=== PATIENT | male | born 1970 | race Caucasian/White ===

== ENCOUNTER → 2016-05-20 | Outpatient (CLI) | payer OTHER ==
--- NOTE | 2016-05-23 06:01 | SLEEPCENT ---
DATE OF PROCEDURE: 05/20/2016 ORDERED BY: Dr. Adiel Zapien. Nocturnal polysomnography was performed for the titration of pressure therapy in this patient with obstructive sleep apnea syndrome, apnea-hypopnea index 12.5. For testing, the patient was fit with a ResMed Quattro full face mask of large size, 5 cm of water pressure were applied to the circuit and the lights were extinguished. 6 hours and 4 minutes of data were reviewed. Of these, 221 minutes of sleep were identified. Sleep latency was normal at 17 minutes. REM latency prolonged at 195 minutes. Sleep architecture improved with optimal pressure therapy. Overall sleep efficiency was reduced at 61.4% due to a period of wake around 2 a.m. Patient's EKG showed a sinus rhythm with an average heart rate of 62 beats per minute. EEG showed normal wave forms for wake and sleep. Best sleep was appreciated on a CPAP pressure of +9. CPAP tolerance was good. Remaining measures of sleep physiology were normal. IMPRESSION: Obstructive sleep apnea syndrome (G47.33). RECOMMENDATION: Nightly use of pressure therapy 9 cm of water.
== END ==
LOC: M SLEEP 19:40
PROVIDERS: ATTEND Nurse Practitioner Adult Health
DX: G47.33 Obstructive sleep apnea (adult) (pediatric) (principal)

== ENCOUNTER → 2017-03-30 | Outpatient (CLI) | payer OTHER | LOC: M LAB 08:53 | PROVIDERS: ATTEND Internal Medicine | DX: Z00.5 Encounter for examination of potential donor of organ and tissue (principal) ==

== ENCOUNTER 2017-12-29 10:52 | Emergency (ER) | payer OTHER | END 2017-12-29 11:54 | disposition home or self-care (01) | LOC: M ED 10:52 | DX: S63.602A Unspecified sprain of left thumb, initial encounter (principal); W19.XXXA Unspecified fall, initial encounter; Y92.89 Other specified places as the place of occurrence of the external cause; Z79.899 Other long term (current) drug therapy | CPT/HCPCS: 73140 ==

== ENCOUNTER 2018-08-31 06:51 | Day surgery (SDC) | payer OTHER ==
[~2018-08-31] VITALS: Ht 182.9 cm; Wt 109.8 kg
[~2018-08-31 06:51] MED LIST: AMLO10TA5 PO; NS 1,000 ML IV ONE
[2018-08-31] MEDS ORDERED: LIDOCAINE 2% INJ 100 MG/5 ML SDV (FOR ANES.) As Ordered ONE (07:29)
[2018-08-31] MEDS ORDERED: PROPOFOL 200 MG/20 ML VIAL As Ordered ONE (07:29)
--- NOTE | 2018-08-31 07:41 | ROOR ---
Patient Name: Lion Alvarez Procedure Date: 08/31/2018 7:23 AM Date of : 1970 Age: 48 Room: [facility] Gender: Male Note Status: Finalized Procedure: Colonoscopy Indications: Screening for colorectal malignant neoplasm Providers: Adiel BUSTAMANTE MD Referring MD: CARRIE COHEN MD Requesting Provider: Medicines: Monitored Anesthesia Care Complications: No immediate complications. Procedure: Pre-Anesthesia Assessment: - The heart rate, respiratory rate, oxygen saturations, blood pressure, adequacy of pulmonary ventilation, and response to care were monitored throughout the procedure. The Colonoscope was introduced through the anus and advanced to the terminal ileum, with identification of the appendiceal orifice and IC valve. The colonoscopy was performed without difficulty. The patient tolerated the procedure well. The quality of the bowel preparation was good. Findings: The perianal and digital rectal examinations were normal. Small Internal Hemorrhoids. The entire examined colon appeared normal on direct and retroflexion views. Impression: - Small Internal Hemorrhoids. - The entire colon is normal on direct and retroflexion views. - No specimens collected. Recommendation: - Repeat colonoscopy in 10 years for screening purposes. Adiel Bustamante MD Adiel BUSTAMANTE MD 08/31/2018 7:41:15 AM Electronically signed by Adiel BUSTAMANTE MD Number of Addenda: 0 Note Initiated On: 08/31/2018 7:23 AM Estimated Blood Loss: Estimated blood loss: none.
[2018-08-31 08:01] VITALS: BP 145/83
== END 2018-08-31 08:03 | disposition home or self-care (01) ==
LOC: M OPP 06:51
PROVIDERS: ATTEND Internal Medicine Gastroenterology
DX: K64.8 Other hemorrhoids (principal); Z12.11 Encounter for screening for malignant neoplasm of colon

== ENCOUNTER → 2020-09-20 | Outpatient (CLI) | payer OTHER ==
[~2020-09-20] MED LIST changes: -AMLO10TA5 PO; +AMLO1TAB25 PO; -NS 1,000 ML IV ONE
== END ==
LOC: M LABSMTC 09:41
PROVIDERS: ATTEND Pain Medicine Pain Medicine
DX: Z20.828 Contact with and (suspected) exposure to other viral communicable diseases (principal); Z11.59 Encounter for screening for other viral diseases

== ENCOUNTER 2020-09-26 06:13 | Emergency (ER) | payer OTHER ==
[~2020-09-26] VITALS: Ht 180.3 cm; Wt 106.8 kg
[2020-09-26 06:29] LABS: BASO % 0.1 % (0.0-1.0); HEMATOCRIT 47.8 % (42.0-52.0); HEMOGLOBIN 16.5 g/dl (13.5-17.5); LYMPH # 1.5 10^3/uL (1.5-5.0); LYMPH % 10.4 % (24.0-44.0); MEAN CORPUSCULAR HGB CONC 34.5 g/dl (32.0-36.5); MEAN CORPUSCULAR VOLUME 89.7 fl (80.0-96.0); MONO # 0.6 10^3/uL (0.0-0.8); MONO % 4.3 % (2.0-8.0); NEUTROPHILS # 12.3 10^3/uL (1.5-8.5); NEUTROPHILS % 84.3 % (36.0-66.0); PLATELET COUNT, AUTOMATED 265 10^3/uL (150-450); RED BLOOD COUNT 5.33 10^6/uL (4.30-6.10); WHITE BLOOD COUNT 14.6 10^3/uL (4.0-10.0)
[2020-09-26] MEDS ORDERED: KETOROLAC 30 MG/ML 1ML VIAL IV ONE (06:45)
[2020-09-26 07:01] LABS: BLOOD UREA NITROGEN 20 MG/DL (7-18); CALCIUM LEVEL 10.1 MG/DL (8.5-10.1); CARBON DIOXIDE LEVEL 22 MEQ/L (21-32); CHLORIDE LEVEL 108 MEQ/L (98-107); CK-MB VALUE MASS < 1.0 NG/ML (<3.6); CPK CREATINE PHOSPHOKINASE 141 U/L (39-308); CREATININE FOR GFR 1.17 MG/DL (0.70-1.30); GLOMERULAR FILTRATION RATE > 60.0 (>56); GLUCOSE, FASTING 155 MG/DL (70-100); MB/CK RELATIVE INDEX 0.71 (< OR =4); POTASSIUM SERUM 4.4 MEQ/L (3.5-5.1); SODIUM LEVEL 139 MEQ/L (136-145)
--- NOTE | 2020-09-26 07:04 | REPVR ---
PROCEDURE INFORMATION: Exam: XR Chest Exam date and time: 09/26/2020 6:47 AM Age: 50 years old Clinical indication: Pain; Other: Not specified; Additional info: Chest pain TECHNIQUE: Imaging protocol: XR of the chest. Views: 1 view. COMPARISON: CR CHEST 2 VIEW 08/17/2017 9:46 AM FINDINGS: Lungs: Unremarkable. No consolidation. Pleural spaces: Unremarkable. No pleural effusion. No pneumothorax. Heart/Mediastinum: Unremarkable. No cardiomegaly. Bones/joints: Unremarkable. IMPRESSION: No acute findings. Electronically signed by: Charli Foster On 09/26/2020 07:03:42 AM
[2020-09-26] MEDS ORDERED: GI COCKTAIL 50ML BTL(HYOSCYAMINE/MAALOX/LIDOCAINE VISCOUS)(1:3:1) PO ONE (07:55)
[2020-09-26 09:30] VITALS: BP 157/81
[2020-09-26] MEDS ORDERED: SUCR1TA PO (09:31)
[2020-09-26] MEDS ORDERED: OMEP40CA97 PO (09:31)
--- NOTE | 2020-09-26 19:49 | ECGEPIP ---
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
--- NOTE | 2020-09-26 19:57 | ECGEPIP ---
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
== END 2020-09-26 10:47 | disposition home or self-care (01) ==
LOC: M ED 06:13
DX: R07.89 Other chest pain (principal); R06.02 Shortness of breath; M54.2 Cervicalgia; I10 Essential (primary) hypertension
CPT/HCPCS: 71045; 80048; 82550; 82553; 84484; 85025; 93005; 93041; 94760; 96374; 99285; J1885

== ENCOUNTER → 2021-01-09 | Outpatient (CLI) | payer OTHER ==
[~2021-01-09] MED LIST changes: +OMEP40CA4 PO; +SUCR1TA PO
[2021-01-09 08:26] LABS: ALBUMIN 3.9 GM/DL (3.2-5.2); ALT/SGPT 149 U/L (12-78); BILIRUBIN,TOTAL 0.5 MG/DL (0.2-1.0); BLOOD UREA NITROGEN 15 MG/DL (7-18); CALCIUM LEVEL 9.4 MG/DL (8.5-10.1); CARBON DIOXIDE LEVEL 28 MEQ/L (21-32); CHLORIDE LEVEL 105 MEQ/L (98-107); CREATININE FOR GFR 1.08 MG/DL (0.70-1.30); GLOMERULAR FILTRATION RATE > 60.0 (>56); GLUCOSE, FASTING 97 MG/DL (70-100); NT-PRO BNP 7 PG/ML (<125); POTASSIUM SERUM 4.3 MEQ/L (3.5-5.1); SODIUM LEVEL 139 MEQ/L (136-145); TOTAL PROTEIN 7.3 GM/DL (6.4-8.2)
== END ==
LOC: M LAB 07:19
PROVIDERS: ATTEND Internal Medicine Cardiovascular Disease
DX: R06.00 Dyspnea, unspecified (principal); E78.2 Mixed hyperlipidemia; I10 Essential (primary) hypertension

== ENCOUNTER 2021-05-16 23:11 | Inpatient (IN) | payer OTHER ==
[~2021-05-16] VITALS: Ht 182.9 cm; Wt 111.4 kg
[2021-05-16] MEDS ORDERED: ATOR40TA75 (23:24)
[2021-05-16] MEDS ORDERED: SPIR-10 (23:24)
[2021-05-16] MEDS ORDERED: CARV3.12 (23:24)
[2021-05-16] MEDS ORDERED: CHLO125TA (23:24)
[2021-05-16] MEDS ORDERED: LISI10TA22 (23:24)
[2021-05-16] MEDS ORDERED: dexameTHASONE 20MG/5ML VIAL (J1100 PER 1MG) IV ONE (23:50)
[2021-05-17] MEDS: COMBIVENT RESPIMAT 100-20MCG INHALER 4GM INH SCH (00:21)
[2021-05-17 00:32] LABS: ABG BASE EXCESS -4.3 (-2.0-2.0); ABG HCO3 18.3 MEQ/L (22.0-26.0); ABG O2 SATURATION 98.9 % (95.0-99.0); ABG PARTIAL PRESSURE CO2 27.3 mmHg (35.0-45.0); ABG PARTIAL PRESSURE O2 136.2 mmHg (75.0-100.0); ABG TOTAL CO2 19.2 MEQ/L (22.0-29.0); ABG pH (ARTERIAL) 7.445 UNITS (7.350-7.450)
[2021-05-17 00:41] LABS: HEMATOCRIT 44.9 % (42.0-52.0); HEMOGLOBIN 15.4 g/dl (13.5-17.5); LYMPH # 1.3 10^3/uL (1.5-5.0); LYMPH % 26.6 % (24.0-44.0); MEAN CORPUSCULAR HEMOGLOBIN 31.2 pg (27.0-33.0); MEAN CORPUSCULAR HGB CONC 34.3 g/dl (32.0-36.5); MEAN CORPUSCULAR VOLUME 90.9 fl (80.0-96.0); MONO # 0.7 10^3/uL (0.0-0.8); MONO % 13.8 % (2.0-8.0); NEUTROPHILS # 2.9 10^3/uL (1.5-8.5); NEUTROPHILS % 59.2 % (36.0-66.0); PLATELET COUNT, AUTOMATED 145 10^3/uL (150-450); RED BLOOD COUNT 4.94 10^6/uL (4.30-6.10); WHITE BLOOD COUNT 4.9 10^3/uL (4.0-10.0)
[2021-05-17 00:52] LABS: CALCIUM LEVEL 8.2 MG/DL (8.5-10.1); CREATININE FOR GFR 2.12 MG/DL (0.70-1.30); GLOMERULAR FILTRATION RATE 35.1 (>56); POTASSIUM SERUM 4.1 MEQ/L (3.5-5.1)
[2021-05-17 00:53] LABS: ALBUMIN 3.6 GM/DL (3.2-5.2); BILIRUBIN,DIRECT 0.3 MG/DL (0.0-0.2); BILIRUBIN,TOTAL 0.4 MG/DL (0.2-1.0); CK-MB VALUE MASS < 1.0 NG/ML (<3.6); CPK CREATINE PHOSPHOKINASE 81 U/L (39-308); MB/CK RELATIVE INDEX 1.23 (< OR =4); TOTAL PROTEIN 7.1 GM/DL (6.4-8.2)
[2021-05-17] MEDS ORDERED: NS 1,000 ML IV ONE (01:00)
[2021-05-17 01:33] LABS: CK-MB VALUE MASS < 1.0 NG/ML (<3.6); CPK CREATINE PHOSPHOKINASE 75 U/L (39-308); MB/CK RELATIVE INDEX 1.33 (< OR =4)
[2021-05-17] MEDS ORDERED: LISI10TA22 PO (01:55)
[2021-05-17] MEDS ORDERED: SPIR-10 PO (01:55)
[2021-05-17] MEDS ORDERED: CHLO125TA PO (01:55)
[2021-05-17] MEDS ORDERED: HOME MED LIST COMPLETE! XX SCH (01:55)
[2021-05-17] MEDS ORDERED: NITR4TASL SL (01:55)
[2021-05-17] MEDS ORDERED: ATOR40TA75 PO (01:55)
[2021-05-17] MEDS ORDERED: CARV3.12 PO (01:55)
[2021-05-17] MEDS ORDERED: MOM 30ML SUSPENSION UDC PO PRN (03:10)
[2021-05-17] MEDS ORDERED: MAALOX 30 ML SUSP *UDC PO PRN (03:10)
[2021-05-17] MEDS ORDERED: ACETAMINOPHEN TAB 650MG DOSE (2X325MG) PO PRN (03:10)
[2021-05-17] MEDS ORDERED: NITROGLYCERIN 0.4 MG SUBL TABLET SL PRN (03:15)
[2021-05-17 03:52] LABS: HEMOGLOBIN 14.2 g/dl (13.5-17.5); LYMPH % 27.5 % (24.0-44.0); MEAN CORPUSCULAR HEMOGLOBIN 31.1 pg (27.0-33.0); MEAN CORPUSCULAR HGB CONC 33.8 g/dl (32.0-36.5); MEAN CORPUSCULAR VOLUME 92.1 fl (80.0-96.0); MONO # 0.3 10^3/uL (0.0-0.8); MONO % 8.3 % (2.0-8.0); NEUTROPHILS # 2.3 10^3/uL (1.5-8.5); NEUTROPHILS % 63.6 % (36.0-66.0); PLATELET COUNT, AUTOMATED 140 10^3/uL (150-450); RED BLOOD COUNT 4.56 10^6/uL (4.30-6.10); WHITE BLOOD COUNT 3.6 10^3/uL (4.0-10.0)
[2021-05-17 04:14] LABS: ALBUMIN 3.1 GM/DL (3.2-5.2); BILIRUBIN,TOTAL 0.5 MG/DL (0.2-1.0); CALCIUM LEVEL 7.9 MG/DL (8.5-10.1); CREATININE FOR GFR 1.82 MG/DL (0.70-1.30); GLOMERULAR FILTRATION RATE 41.9 (>56); MAGNESIUM LEVEL 2.2 MG/DL (1.8-2.4); POTASSIUM SERUM 3.9 MEQ/L (3.5-5.1); TOTAL PROTEIN 7.2 GM/DL (6.4-8.2)
[2021-05-17 04:18] LABS: ALBUMIN 3.2 GM/DL (3.2-5.2); BILIRUBIN,DIRECT 0.3 MG/DL (0.0-0.2); BILIRUBIN,TOTAL 0.4 MG/DL (0.2-1.0); TOTAL PROTEIN 6.5 GM/DL (6.4-8.2)
[2021-05-17] MEDS ORDERED: REMDESIVIR 200 MG in NS 250 ML IV ONE (07:00)
[2021-05-17] MEDS: NS 1,000 ML IV SCH ×3 (07:00→18:33)
[2021-05-17 07:39] LABS: INR 0.99; PROTHROMBIN TIME 13.5 SECONDS (12.7-14.5)
[2021-05-17 07:40] LABS: PARTIAL THROMBOPLASTIN TIME 29.5 SECONDS (25.9-37.0)
[2021-05-17 07:43] LABS: D-DIMER QUANT 528.76 ng/ml (<500)
[2021-05-17 07:56] LABS: C REACTIVE PROTEIN QUANTITATIV 0.6 MG/DL (0.00-0.30)
[2021-05-17] MEDS ORDERED: SODIUM CHLORIDE 0.9% INJ 10 ML SYR IV ONE (08:00)
[2021-05-17] MEDS: CARVedilol 3.125 MG TAB PO SCH ×2 (09:30→21:58)
[2021-05-17] MEDS: dexameTHASONE 4 MG/ML 1ML VIAL (J1100 PER 1MG) IV SCH (09:30)
[2021-05-17] MEDS: BARICITINIB 2MG TABLET (OLUMIANT) FOR EUA PO SCH (09:31)
[2021-05-17] MEDS ORDERED: COMBIVENT RESPIMAT 100-20MCG INHALER 4GM INH PRN (11:10)
[2021-05-17 13:49] LABS: CREATININE FOR GFR 1.52 MG/DL (0.70-1.30); GLOMERULAR FILTRATION RATE 51.5 (>56); POTASSIUM SERUM 4.1 MEQ/L (3.5-5.1)
[2021-05-17] MEDS: ENOXAPARIN 30MG/0.3ML SYRINGE (J1650 PER 10MG) SC SCH (14:17)
[2021-05-17 17:10] VITALS: BP 134/74
[2021-05-17 20:00] VITALS: BP 137/73
[2021-05-17] MEDS: ATORVASTATIN 20 MG TAB PO SCH (21:58)
[2021-05-18] VITALS (9 sets, daily range): BP systolic 117–167; BP diastolic 61–73; O2SAT 90–93
[2021-05-18] MEDS: NS 1,000 ML IV SCH ×2 (01:08→08:58)
[2021-05-18] MEDS: REMDESIVIR 100 MG in NS 250 ML IV SCH (06:43)
[2021-05-18 07:58] LABS: HEMATOCRIT 43.6 % (42.0-52.0); HEMOGLOBIN 14.4 g/dl (13.5-17.5); LYMPH # 1.8 10^3/uL (1.5-5.0); LYMPH % 26.3 % (24.0-44.0); MEAN CORPUSCULAR HEMOGLOBIN 30.6 pg (27.0-33.0); MEAN CORPUSCULAR VOLUME 92.8 fl (80.0-96.0); MONO % 14.5 % (2.0-8.0); NEUTROPHILS % 58.6 % (36.0-66.0); PLATELET COUNT, AUTOMATED 162 10^3/uL (150-450); WHITE BLOOD COUNT 6.7 10^3/uL (4.0-10.0)
[2021-05-18 08:44] LABS: BLOOD UREA NITROGEN 41 MG/DL (7-18); CARBON DIOXIDE LEVEL 19 MEQ/L (21-32); CHLORIDE LEVEL 113 MEQ/L (98-107); CREATININE FOR GFR 1.06 MG/DL (0.70-1.30); GLOMERULAR FILTRATION RATE > 60.0 (>56); GLUCOSE, FASTING 121 MG/DL (70-100); MAGNESIUM LEVEL 2.2 MG/DL (1.8-2.4); POTASSIUM SERUM 4.2 MEQ/L (3.5-5.1); SODIUM LEVEL 143 MEQ/L (136-145)
[2021-05-18] MEDS: SODIUM CHLORIDE 0.9% INJ 10 ML SYR IV SCH (08:56)
[2021-05-18] MEDS: CARVedilol 3.125 MG TAB PO SCH ×2 (08:57→21:00)
[2021-05-18] MEDS: BARICITINIB 2MG TABLET (OLUMIANT) FOR EUA PO SCH (08:57)
[2021-05-18] MEDS: dexameTHASONE 4 MG/ML 1ML VIAL (J1100 PER 1MG) IV SCH (08:58)
[2021-05-18] MEDS: ENOXAPARIN 30MG/0.3ML SYRINGE (J1650 PER 10MG) SC SCH (08:58)
[2021-05-18] MEDS: ATORVASTATIN 20 MG TAB PO SCH (21:01)
[2021-05-19] VITALS (8 sets, daily range): BP systolic 112–127; BP diastolic 58–69; O2SAT 84–92
[2021-05-19] MEDS: REMDESIVIR 100 MG in NS 250 ML IV SCH (06:40)
[2021-05-19 07:44] LABS: HEMATOCRIT 42.4 % (42.0-52.0); HEMOGLOBIN 14.2 g/dl (13.5-17.5); MEAN CORPUSCULAR HEMOGLOBIN 30.5 pg (27.0-33.0); MEAN CORPUSCULAR HGB CONC 33.5 g/dl (32.0-36.5); PLATELET COUNT, AUTOMATED 187 10^3/uL (150-450); RED BLOOD COUNT 4.66 10^6/uL (4.30-6.10); WHITE BLOOD COUNT 8.5 10^3/uL (4.0-10.0)
[2021-05-19 08:00] LABS: BLOOD UREA NITROGEN 34 MG/DL (7-18); CALCIUM LEVEL 8.3 MG/DL (8.5-10.1); CARBON DIOXIDE LEVEL 21 MEQ/L (21-32); CHLORIDE LEVEL 110 MEQ/L (98-107); CREATININE FOR GFR 1.05 MG/DL (0.70-1.30); GLOMERULAR FILTRATION RATE > 60.0 (>56); GLUCOSE, FASTING 110 MG/DL (70-100); MAGNESIUM LEVEL 2.2 MG/DL (1.8-2.4); POTASSIUM SERUM 3.9 MEQ/L (3.5-5.1); SODIUM LEVEL 141 MEQ/L (136-145)
[2021-05-19] MEDS: SODIUM CHLORIDE 0.9% INJ 10 ML SYR IV SCH (08:20)
[2021-05-19 08:38] LABS: ATYPICAL LYMPH 4 % (0-5); LYMPHOCYTES 11 % (16-44); MONOCYTES 15 % (0-5); NEUTROPHILS 68 % (28-66)
[2021-05-19 08:41] LABS: PLATELET CLUMPS SMALL AMT; PLATELET ESTIMATE NORMAL (NORMAL)
[2021-05-19] MEDS: ENOXAPARIN 30MG/0.3ML SYRINGE (J1650 PER 10MG) SC SCH (09:04)
[2021-05-19] MEDS: dexameTHASONE 4 MG/ML 1ML VIAL (J1100 PER 1MG) IV SCH (09:05)
[2021-05-19] MEDS: BARICITINIB 2MG TABLET (OLUMIANT) FOR EUA PO SCH (09:05)
[2021-05-19] MEDS: CARVedilol 3.125 MG TAB PO SCH ×2 (09:08→20:36)
[2021-05-19] MEDS: ATORVASTATIN 20 MG TAB PO SCH (20:36)
[2021-05-20] VITALS (12 sets, daily range): BP systolic 118–138; BP diastolic 58–68; O2SAT 90–95
[2021-05-20 06:55] LABS: HEMOGLOBIN 14.8 g/dl (13.5-17.5); MEAN CORPUSCULAR HEMOGLOBIN 30.8 pg (27.0-33.0); MEAN CORPUSCULAR HGB CONC 34.4 g/dl (32.0-36.5); MEAN CORPUSCULAR VOLUME 89.4 fl (80.0-96.0); PLATELET COUNT, AUTOMATED 179 10^3/uL (150-450); RED BLOOD COUNT 4.81 10^6/uL (4.30-6.10); WHITE BLOOD COUNT 10.3 10^3/uL (4.0-10.0)
[2021-05-20 07:19] LABS: BLOOD UREA NITROGEN 31 MG/DL (7-18); CALCIUM LEVEL 8.3 MG/DL (8.5-10.1); CARBON DIOXIDE LEVEL 23 MEQ/L (21-32); CHLORIDE LEVEL 107 MEQ/L (98-107); CREATININE FOR GFR 0.94 MG/DL (0.70-1.30); GLOMERULAR FILTRATION RATE > 60.0 (>56); GLUCOSE, FASTING 98 MG/DL (70-100); MAGNESIUM LEVEL 2.1 MG/DL (1.8-2.4); POTASSIUM SERUM 3.9 MEQ/L (3.5-5.1); SODIUM LEVEL 139 MEQ/L (136-145)
[2021-05-20 07:27] LABS: ATYPICAL LYMPH 13 % (0-5); LYMPHOCYTES 11 % (16-44); MONOCYTES 7 % (0-5); NEUTROPHILS 69 % (28-66)
[2021-05-20 07:28] LABS: PLATELET ESTIMATE NORMAL (NORMAL)
[2021-05-20 07:29] LABS: POIKILOCYTOSIS 1+
[2021-05-20] MEDS: REMDESIVIR 100 MG in NS 250 ML IV SCH (07:32)
[2021-05-20] MEDS: SODIUM CHLORIDE 0.9% INJ 10 ML SYR IV SCH (08:00)
[2021-05-20] MEDS: dexameTHASONE 4 MG/ML 1ML VIAL (J1100 PER 1MG) IV SCH (09:26)
[2021-05-20] MEDS: ENOXAPARIN 40MG/0.4ML SYRINGE (J1650 PER 10MG) SC SCH (09:27)
[2021-05-20] MEDS: BARICITINIB 2MG TABLET (OLUMIANT) FOR EUA PO SCH (09:31)
[2021-05-20] MEDS: CARVedilol 3.125 MG TAB PO SCH ×2 (09:35→22:14)
[2021-05-20] MEDS: ATORVASTATIN 20 MG TAB PO SCH (22:03)
[2021-05-21] VITALS (9 sets, daily range): BP systolic 127–146; BP diastolic 61–73; O2SAT 90–93
[2021-05-21 07:03] LABS: BASO % 0.2 % (0.0-1.0); HEMATOCRIT 43.6 % (42.0-52.0); HEMOGLOBIN 14.9 g/dl (13.5-17.5); LYMPH # 1.8 10^3/uL (1.5-5.0); MEAN CORPUSCULAR HEMOGLOBIN 30.6 pg (27.0-33.0); MEAN CORPUSCULAR HGB CONC 34.2 g/dl (32.0-36.5); MEAN CORPUSCULAR VOLUME 89.5 fl (80.0-96.0); MONO # 0.9 10^3/uL (0.0-0.8); MONO % 6.8 % (2.0-8.0); NEUTROPHILS # 10.2 10^3/uL (1.5-8.5); NEUTROPHILS % 78.3 % (36.0-66.0); PLATELET COUNT, AUTOMATED 198 10^3/uL (150-450); RED BLOOD COUNT 4.87 10^6/uL (4.30-6.10); WHITE BLOOD COUNT 13.1 10^3/uL (4.0-10.0)
[2021-05-21 07:33] LABS: BLOOD UREA NITROGEN 25 MG/DL (7-18); CALCIUM LEVEL 8.7 MG/DL (8.5-10.1); CARBON DIOXIDE LEVEL 25 MEQ/L (21-32); CHLORIDE LEVEL 104 MEQ/L (98-107); CREATININE FOR GFR 0.92 MG/DL (0.70-1.30); GLOMERULAR FILTRATION RATE > 60.0 (>56); GLUCOSE, FASTING 95 MG/DL (70-100); MAGNESIUM LEVEL 2.2 MG/DL (1.8-2.4); POTASSIUM SERUM 3.8 MEQ/L (3.5-5.1); SODIUM LEVEL 135 MEQ/L (136-145)
[2021-05-21] MEDS: REMDESIVIR 100 MG in NS 250 ML IV SCH (07:34)
[2021-05-21] MEDS: SODIUM CHLORIDE 0.9% INJ 10 ML SYR IV SCH (09:12)
[2021-05-21] MEDS: ENOXAPARIN 40MG/0.4ML SYRINGE (J1650 PER 10MG) SC SCH (09:13)
[2021-05-21] MEDS: BARICITINIB 2MG TABLET (OLUMIANT) FOR EUA PO SCH (09:13)
[2021-05-21] MEDS: CARVedilol 3.125 MG TAB PO SCH ×2 (09:13→20:31)
[2021-05-21] MEDS: dexameTHASONE 4 MG/ML 1ML VIAL (J1100 PER 1MG) IV SCH (09:13)
[2021-05-21] MEDS: ATORVASTATIN 20 MG TAB PO SCH (20:31)
[2021-05-21 21:19] LABS: ABG BASE EXCESS -0.1 (-2.0-2.0); ABG HCO3 21.8 MEQ/L (22.0-26.0); ABG O2 SATURATION 93.1 % (95.0-99.0); ABG PARTIAL PRESSURE O2 62.8 mmHg (75.0-100.0); ABG STANDARD HCO3 24.3 MEQ/L (22.0-26.0); ABG TOTAL CO2 22.7 MEQ/L (22.0-29.0); ABG pH (ARTERIAL) 7.494 UNITS (7.350-7.450)
[2021-05-21] MEDS: COMBIVENT RESPIMAT 100-20MCG INHALER 4GM INH SCH (21:26)
[2021-05-22] MEDS: FLUTICASONE PROP 0.05% NASAL SPRAY 16 GM (FLONASE) NARES SCH ×3 (00:01→20:22)
[2021-05-22] MEDS: IPRATROPIUM 0.5MG/ALBUTEROL 2.5MG INH SOL UD 3ML (DUONEB) NEB PRN ×3 (00:39→07:39)
[2021-05-22 00:57] LABS: ABG BASE EXCESS 0.8 (-2.0-2.0); ABG HCO3 22.6 MEQ/L (22.0-26.0); ABG O2 SATURATION 92.1 % (95.0-99.0); ABG PARTIAL PRESSURE CO2 29.4 mmHg (35.0-45.0); ABG PARTIAL PRESSURE O2 60.7 mmHg (75.0-100.0); ABG TOTAL CO2 23.5 MEQ/L (22.0-29.0); ABG pH (ARTERIAL) 7.504 UNITS (7.350-7.450)
[2021-05-22] MEDS: COMBIVENT RESPIMAT 100-20MCG INHALER 4GM INH SCH ×4 (01:10→19:53)
[2021-05-22] MEDS ORDERED: RAMELTEON 8 MG TAB (ROZEREM) PO PRN (02:20)
[2021-05-22] MEDS ORDERED: hydrOXYzine 25 MG TAB PO PRN (02:20)
[2021-05-22 03:55] VITALS: BP 121/59
[2021-05-22] MEDS ORDERED: MORPHINE 2 MG/ML 1ML VIAL (J2270) IV ONE (04:10)
[2021-05-22 04:39] LABS: BASO % 0.2 % (0.0-1.0); EOS % 0.1 % (0.0-3.0); HEMATOCRIT 45.9 % (42.0-52.0); HEMOGLOBIN 15.6 g/dl (13.5-17.5); LYMPH # 1.4 10^3/uL (1.5-5.0); LYMPH % 8.6 % (24.0-44.0); MEAN CORPUSCULAR HEMOGLOBIN 30.6 pg (27.0-33.0); MONO # 0.7 10^3/uL (0.0-0.8); MONO % 4.2 % (2.0-8.0); NEUTROPHILS # 13.7 10^3/uL (1.5-8.5); NEUTROPHILS % 86.3 % (36.0-66.0); PLATELET COUNT, AUTOMATED 218 10^3/uL (150-450); WHITE BLOOD COUNT 15.8 10^3/uL (4.0-10.0)
[2021-05-22 04:44] LABS: VENOUS BASE EXCESS 0.1 (-2.0-2.0); VENOUS HCO3 22.6 MEQ/L (23.0-27.0); VENOUS O2 SATURATION 72.2 % (60.0-80.0); VENOUS PARTIAL PRESSURE CO2 31.6 mmHg (38.0-50.0); VENOUS PARTIAL PRESSURE O2 36.5 mmHg (30.0-50.0); VENOUS PH 7.473 UNITS (7.330-7.430); VENOUS STANDARD HCO3 23.9 MEQ/L; VENOUS TOTAL CO2 23.6 MEQ/L (24.0-28.0)
[2021-05-22 06:01] LABS: BLOOD UREA NITROGEN 22 MG/DL (7-18); CALCIUM LEVEL 8.5 MG/DL (8.5-10.1); CARBON DIOXIDE LEVEL 20 MEQ/L (21-32); CHLORIDE LEVEL 105 MEQ/L (98-107); CREATININE FOR GFR 0.92 MG/DL (0.70-1.30); GLOMERULAR FILTRATION RATE > 60.0 (>56); GLUCOSE, FASTING 78 MG/DL (70-100); POTASSIUM SERUM 4.6 MEQ/L (3.5-5.1); SODIUM LEVEL 138 MEQ/L (136-145)
[2021-05-22 06:04] LABS: CK-MB VALUE MASS 1.4 NG/ML (<3.6); MB/CK RELATIVE INDEX 0.56 (< OR =4)
[2021-05-22] MEDS: CARVedilol 3.125 MG TAB PO SCH ×2 (08:13→20:22)
[2021-05-22] MEDS: BARICITINIB 2MG TABLET (OLUMIANT) FOR EUA PO SCH (08:13)
[2021-05-22] MEDS: dexameTHASONE 4 MG/ML 1ML VIAL (J1100 PER 1MG) IV SCH (08:13)
[2021-05-22] MEDS: ENOXAPARIN 40MG/0.4ML SYRINGE (J1650 PER 10MG) SC SCH (08:13)
[2021-05-22] MEDS: PIPERACILLIN/TAZOBACTAM SOD 4.5 GM in D5W MINI-BAG PLUS 50 ML IV SCH ×3 (08:13→20:22)
[2021-05-22] MEDS: DOXYCYCLINE HYCLATE 100 MG in D5W MINI-BAG PLUS 100 ML IV SCH ×2 (08:14→21:34)
[2021-05-22 08:47] LABS: CK-MB VALUE MASS < 1.0 NG/ML (<3.6); CPK CREATINE PHOSPHOKINASE 149 U/L (39-308); MB/CK RELATIVE INDEX 0.67 (< OR =4)
[2021-05-22 09:25] LABS: HEMATOCRIT 45.1 % (42.0-52.0); HEMOGLOBIN 15.5 g/dl (13.5-17.5); MEAN CORPUSCULAR HEMOGLOBIN 30.6 pg (27.0-33.0); MEAN CORPUSCULAR HGB CONC 34.4 g/dl (32.0-36.5); MEAN CORPUSCULAR VOLUME 89.1 fl (80.0-96.0); PLATELET COUNT, AUTOMATED 232 10^3/uL (150-450); RED BLOOD COUNT 5.06 10^6/uL (4.30-6.10); WHITE BLOOD COUNT 14.7 10^3/uL (4.0-10.0)
[2021-05-22 10:50] LABS: BLOOD UREA NITROGEN 22 MG/DL (7-18); CALCIUM LEVEL 8.5 MG/DL (8.5-10.1); CARBON DIOXIDE LEVEL 25 MEQ/L (21-32); CHLORIDE LEVEL 101 MEQ/L (98-107); CREATININE FOR GFR 1.14 MG/DL (0.70-1.30); GLOMERULAR FILTRATION RATE > 60.0 (>56); GLUCOSE, FASTING 226 MG/DL (70-100); POTASSIUM SERUM 3.9 MEQ/L (3.5-5.1); SODIUM LEVEL 134 MEQ/L (136-145)
[2021-05-22 10:54] LABS: CK-MB VALUE MASS 1.4 NG/ML (<3.6); MB/CK RELATIVE INDEX 1.04 (< OR =4)
[2021-05-22 12:56] VITALS: BP 118/67
[2021-05-22 16:00] VITALS: BP 109/59
[2021-05-22 20:00] VITALS: BP 121/67
[2021-05-22 20:22] VITALS: BP 121/67
[2021-05-22] MEDS: ATORVASTATIN 20 MG TAB PO SCH (20:22)
[2021-05-22 22:05] VITALS: O2SAT 94
[2021-05-23] VITALS (48 sets, daily range): BP systolic 64–185; BP diastolic 36–114
[2021-05-23] MEDS: COMBIVENT RESPIMAT 100-20MCG INHALER 4GM INH SCH ×2 (01:49→08:00)
[2021-05-23] MEDS: PIPERACILLIN/TAZOBACTAM SOD 4.5 GM in D5W MINI-BAG PLUS 50 ML IV SCH ×2 (02:02→10:21)
[2021-05-23 04:13] LABS: ABG BASE EXCESS -0.7 (-2.0-2.0); ABG HCO3 20.9 MEQ/L (22.0-26.0); ABG O2 SATURATION 90.2 % (95.0-99.0); ABG PARTIAL PRESSURE CO2 27.8 mmHg (35.0-45.0); ABG PARTIAL PRESSURE O2 54.4 mmHg (75.0-100.0); ABG STANDARD HCO3 23.7 MEQ/L (22.0-26.0); ABG TOTAL CO2 21.8 MEQ/L (22.0-29.0); ABG pH (ARTERIAL) 7.495 UNITS (7.350-7.450)
[2021-05-23] MEDS ORDERED: LORazepam 2 MG/ML VIAL IV ONE (05:25)
[2021-05-23] MEDS ORDERED: LIDOCAINE 5% (LIDODERM) PATCH TD SCH (05:30)
[2021-05-23 06:29] LABS: VENOUS BASE EXCESS 0.1 (-2.0-2.0); VENOUS HCO3 22.6 MEQ/L (23.0-27.0); VENOUS O2 SATURATION 78.7 % (60.0-80.0); VENOUS PARTIAL PRESSURE CO2 31.3 mmHg (38.0-50.0); VENOUS PARTIAL PRESSURE O2 39.9 mmHg (30.0-50.0); VENOUS PH 7.476 UNITS (7.330-7.430); VENOUS STANDARD HCO3 24.1 MEQ/L; VENOUS TOTAL CO2 23.5 MEQ/L (24.0-28.0)
[2021-05-23 06:30] LABS: BASO % 0.1 % (0.0-1.0); EOS # 0.1 10^3/uL (0.0-0.5); EOS % 0.3 % (0.0-3.0); HEMATOCRIT 44.8 % (42.0-52.0); HEMOGLOBIN 15.5 g/dl (13.5-17.5); LYMPH % 6.8 % (24.0-44.0); MEAN CORPUSCULAR HEMOGLOBIN 30.8 pg (27.0-33.0); MEAN CORPUSCULAR HGB CONC 34.6 g/dl (32.0-36.5); MEAN CORPUSCULAR VOLUME 88.9 fl (80.0-96.0); MONO # 0.5 10^3/uL (0.0-0.8); MONO % 3.6 % (2.0-8.0); NEUTROPHILS # 13.1 10^3/uL (1.5-8.5); NEUTROPHILS % 88.3 % (36.0-66.0); PLATELET COUNT, AUTOMATED 250 10^3/uL (150-450); RED BLOOD COUNT 5.04 10^6/uL (4.30-6.10); WHITE BLOOD COUNT 14.8 10^3/uL (4.0-10.0)
[2021-05-23 06:41] LABS: INR 1.28; PROTHROMBIN TIME 16.4 SECONDS (12.7-14.5)
[2021-05-23 06:42] LABS: PARTIAL THROMBOPLASTIN TIME 27.9 SECONDS (25.9-37.0)
[2021-05-23] MEDS ORDERED: PROCHLORPERAZINE 10MG/2ML VIAL (J0780 PER 1) IV PRN (07:00)
[2021-05-23 07:01] LABS: BLOOD UREA NITROGEN 22 MG/DL (7-18); CALCIUM LEVEL 8.8 MG/DL (8.5-10.1); CARBON DIOXIDE LEVEL 24 MEQ/L (21-32); CHLORIDE LEVEL 103 MEQ/L (98-107); CREATININE FOR GFR 1.16 MG/DL (0.70-1.30); GLOMERULAR FILTRATION RATE > 60.0 (>56); GLUCOSE, FASTING 96 MG/DL (70-100); MAGNESIUM LEVEL 2.2 MG/DL (1.8-2.4); NT-PRO BNP 78 PG/ML (<125); SODIUM LEVEL 134 MEQ/L (136-145)
[2021-05-23 07:11] LABS: ABG BASE EXCESS 0.1 (-2.0-2.0); ABG HCO3 21.4 MEQ/L (22.0-26.0); ABG O2 SATURATION 86.5 % (95.0-99.0); ABG PARTIAL PRESSURE CO2 27.2 mmHg (35.0-45.0); ABG STANDARD HCO3 24.3 MEQ/L (22.0-26.0); ABG TOTAL CO2 22.2 MEQ/L (22.0-29.0); ABG pH (ARTERIAL) 7.514 UNITS (7.350-7.450)
[2021-05-23 07:12] LABS: ABG PARTIAL PRESSURE O2 47.6 mmHg (75.0-100.0)
[2021-05-23 07:20] LABS: CK-MB VALUE MASS 1.5 NG/ML (<3.6); MB/CK RELATIVE INDEX 1.38 (< OR =4)
[2021-05-23 07:23] LABS: D-DIMER QUANT > 4000 ng/ml (<500)
[2021-05-23] MEDS ORDERED: HEPARIN DRIP 25,000 UNITS in IV 1 EA IV SCH (08:20)
[2021-05-23] MEDS ORDERED: HEPARIN SOD (PORCINE) 5000UNITS/ML 1ML VIAL/SYRINGE IV PRN (08:20)
[2021-05-23] MEDS ORDERED: HEPARIN SOD (PORCINE) 5000UNITS/ML 1ML VIAL/SYRINGE IV ONE (08:20)
[2021-05-23] MEDS ORDERED: CHLORHEXIDINE GLUCONATE 0.12 % 15ML UDC (PERIDEX ORAL RINSE) MT SCH (09:00)
[2021-05-23] MEDS ORDERED: ISOVUE-370 76% 100ML VIAL As Ordered ONE (09:23)
[2021-05-23] MEDS ORDERED: SUCCINYLCHOLINE INJ 200 MG/10 ML VIAL (J0330) As Ordered ONE (09:48)
[2021-05-23] MEDS ORDERED: ETOMIDATE INJ 20MG/10ML VIAL As Ordered ONE (09:48)
[2021-05-23] MEDS ORDERED: ETOMIDATE INJ 20MG/10ML VIAL IV STA (09:51)
[2021-05-23] MEDS ORDERED: SUCCINYLCHOLINE INJ 200 MG/10 ML VIAL (J0330) IV STA (09:52)
[2021-05-23] MEDS ORDERED: PROPOFOL 1,000 MG/100 ML VIAL As Ordered ONE (09:53)
[2021-05-23] MEDS: propofoL 1,000 MG in IV 1 EA IV SCH ×2 (09:55→11:41)
[2021-05-23] MEDS ORDERED: MIDAZOLAM INJ 2MG/2ML VIAL (J2250 PER 1MG) As Ordered ONE ×2 (10:01→10:04)
[2021-05-23] MEDS ORDERED: MIDAZOLAM INJ 2MG/2ML VIAL (J2250 PER 1MG) IV STA ×2 (10:01→10:04)
[2021-05-23] MEDS ORDERED: NOREPINEPHRINE 4 MG/4 ML AMP As Ordered ONE (10:12)
[2021-05-23] MEDS: dexameTHASONE 4 MG/ML 1ML VIAL (J1100 PER 1MG) IV SCH (10:21)
[2021-05-23] MEDS ORDERED: ATROPINE SULF 1MG/10ML SYRINGE (J0461) As Ordered ONE (10:46)
[2021-05-23 10:47] LABS: ABG BASE EXCESS -0.8 (-2.0-2.0); ABG HCO3 22.7 MEQ/L (22.0-26.0); ABG O2 SATURATION 90.9 % (95.0-99.0); ABG PARTIAL PRESSURE CO2 34.4 mmHg (35.0-45.0); ABG PARTIAL PRESSURE O2 60.3 mmHg (75.0-100.0); ABG STANDARD HCO3 23.6 MEQ/L (22.0-26.0); ABG TOTAL CO2 23.7 MEQ/L (22.0-29.0); ABG pH (ARTERIAL) 7.437 UNITS (7.350-7.450)
[2021-05-23] MEDS ORDERED: MIDAZOLAM INJ 2MG/2ML VIAL (J2250 PER 1MG) IV PRN (11:00)
[2021-05-23] MEDS ORDERED: ATROPINE SULF 1MG/10ML SYRINGE (J0461) IV PRN (11:00)
[2021-05-23] MEDS ORDERED: REFRIGERATOR IV KEYS XX PRN (11:30)
[2021-05-23] MEDS: FLUTICASONE PROP 0.05% NASAL SPRAY 16 GM (FLONASE) NARES SCH (11:35)
[2021-05-23] MEDS: CARVedilol 3.125 MG TAB PO SCH (11:35)
[2021-05-23] MEDS ORDERED: [UNRECOGNIZED DRUG - CODE] IV (11:37)
[2021-05-23] MEDS ORDERED: DOXY100T27 PO (11:37)
[2021-05-23] MEDS ORDERED: [UNRECOGNIZED DRUG - CODE] IV (11:37)
[2021-05-23] MEDS ORDERED: [UNRECOGNIZED DRUG - CODE] PO (11:37)
[2021-05-23] MEDS ORDERED: dexameTHASONE IV (11:37)
[2021-05-23] MEDS ORDERED: PROP10IN IV (11:37)
[2021-05-23] MEDS ORDERED: ZOSY1SOL6 IV (11:37)
[2021-05-23] MEDS: DOXYCYCLINE HYCLATE 100 MG in D5W MINI-BAG PLUS 100 ML IV SCH (11:40)
[2021-05-23] MEDS ORDERED: NOREPINEPHRINE BITARTRATE 16 MG in D5W 484 ML IV SCH (11:40)
[2021-05-23] MEDS ORDERED: NS 1,000 ML IV SCH (11:40)
[2021-05-23] MEDS: BARICITINIB 2MG TABLET (OLUMIANT) FOR EUA PO SCH (11:41)
[2021-05-23 11:53] LABS: BASO % 0.2 % (0.0-1.0); EOS # 0.1 10^3/uL (0.0-0.5); EOS % 0.3 % (0.0-3.0); HEMOGLOBIN 15.5 g/dl (13.5-17.5); LYMPH # 0.8 10^3/uL (1.5-5.0); LYMPH % 4.6 % (24.0-44.0); MEAN CORPUSCULAR HEMOGLOBIN 30.4 pg (27.0-33.0); MEAN CORPUSCULAR HGB CONC 33.7 g/dl (32.0-36.5); MEAN CORPUSCULAR VOLUME 90.2 fl (80.0-96.0); MONO # 0.5 10^3/uL (0.0-0.8); MONO % 2.8 % (2.0-8.0); NEUTROPHILS # 15.4 10^3/uL (1.5-8.5); NEUTROPHILS % 90.9 % (36.0-66.0); PLATELET COUNT, AUTOMATED 302 10^3/uL (150-450); WHITE BLOOD COUNT 16.9 10^3/uL (4.0-10.0)
[2021-05-23] MEDS ORDERED: MIDAZOLAM HCL 100 MG in D5W 80 ML IV SCH (12:00)
[2021-05-23 12:10] LABS: INR 1.38; PROTHROMBIN TIME 17.4 SECONDS (12.7-14.5)
[2021-05-23 12:11] LABS: PARTIAL THROMBOPLASTIN TIME 28.6 SECONDS (25.9-37.0)
[2021-05-23 12:28] LABS: ALBUMIN 2.7 GM/DL (3.2-5.2); ALT/SGPT 60 U/L (12-78); BILIRUBIN,TOTAL 1.4 MG/DL (0.2-1.0); BLOOD UREA NITROGEN 24 MG/DL (7-18); CALCIUM LEVEL 8.3 MG/DL (8.5-10.1); CARBON DIOXIDE LEVEL 26 MEQ/L (21-32); CHLORIDE LEVEL 102 MEQ/L (98-107); GLOMERULAR FILTRATION RATE > 60.0 (>56); GLUCOSE, FASTING 116 MG/DL (70-100); MAGNESIUM LEVEL 2.1 MG/DL (1.8-2.4); PHOSPHORUS LEVEL 3.4 MG/DL (2.5-4.9); POTASSIUM SERUM 4.1 MEQ/L (3.5-5.1); SODIUM LEVEL 136 MEQ/L (136-145)
[2021-05-23] MEDS ORDERED: NS 500 ML IV SCH (13:00)
[2021-05-23] MEDS ORDERED: **NOTE PATIENT COMMENT** MISC XX SCH (18:00)
== END 2021-05-23 13:40 | disposition short-term general hospital (02) | DRG 177 ==
LOC: M ED 23:11 → M ED INP 05-17 03:08 → ENRESERV 05-17 16:48 → M 4MAIN 05-17 17:15 → M ICU 05-23 09:02
PROVIDERS: ADMIT Family Medicine; ATTEND Internal Medicine
PROC: 05HM33Z Insertion of Infusion Device into Right Internal Jugular Vein, Percutaneous Approach (ICD-10-PCS; principal; 2021-05-23)
DX: U07.1 COVID-19 (principal); I63.9 Cerebral infarction, unspecified; J12.82 Pneumonia due to coronavirus disease 2019; J96.01 Acute respiratory failure with hypoxia; N17.9 Acute kidney failure, unspecified; E78.5 Hyperlipidemia, unspecified; I10 Essential (primary) hypertension; Z79.899 Other long term (current) drug therapy; G47.33 Obstructive sleep apnea (adult) (pediatric); E66.9 Obesity, unspecified